=== PATIENT | male | born 1985 | race Caucasian/White ===

== ENCOUNTER 2022-02-16 06:24 | Emergency (ER) | payer MEDICAID ==
[~2022-02-16] VITALS: Ht 175.3 cm; Wt 85.0 kg
[2022-02-16 06:33] VITALS: BP 146/100
== END 2022-02-16 09:59 | disposition left against medical advice (07) ==
LOC: ER 06:25
DX: M54.9 Dorsalgia, unspecified (principal); Z53.21 Procedure and treatment not carried out due to patient leaving prior to being seen by health care provider

== ENCOUNTER 2022-02-23 22:00 | Emergency (ER) | payer MEDICAID ==
[~2022-02-23] VITALS: Ht 175.3 cm; Wt 81.8 kg
[2022-02-24] MEDS ORDERED: LIDOcaine 1% W/epiNEPHrine 1:100,000 20ml vial SQ ONE (02:30)
[2022-02-24] MEDS ORDERED: LIDOCAINE 2%/EPI 1:100,000 inj. Multi-dose 20 ML VIAL SQ ONE (02:40)
[2022-02-24] MEDS ORDERED: DOXYCYCLINE 100MG CAPSULE PO STA (04:06)
[2022-02-24] MEDS ORDERED: cephalexin 500mg capsule PO ONE (04:10)
[2022-02-24] MEDS ORDERED: CEPH-585 PO (04:24)
[2022-02-24] MEDS ORDERED: DOXY-11 PO (04:24)
[2022-02-24 05:09] VITALS: BP 133/79
== END 2022-02-24 05:12 | disposition home or self-care (01) ==
LOC: ER 22:02
DX: L02.512 Cutaneous abscess of left hand (principal); G89.29 Other chronic pain; Z72.89 Other problems related to lifestyle; Z79.899 Other long term (current) drug therapy
CPT/HCPCS: 10060; 99283

== ENCOUNTER 2022-05-05 23:01 | Emergency (ER) | payer MEDICAID ==
[~2022-05-05] VITALS: Ht 175.3 cm; Wt 86.4 kg
[2022-05-05 23:04] VITALS: BP 140/109
[2022-05-06] MEDS ORDERED: HYDROcodone/acetaminophen 5mg/325mg tablet PO ONE (03:05)
[2022-05-06] MEDS ORDERED: amox tr/potassium clavulanate 875/125mg TAB PO ONE (03:05)
[2022-05-06] MEDS ORDERED: AMOX-117 PO (03:10)
[2022-05-06] MEDS ORDERED: HYDR-3965 PO (03:10)
--- NOTE | 2022-05-06 03:37 | NUR ---
pt being very vocal to RN upon discharge. MD was made aware. MD aware of the patients' back issues. Pt arguing that "no one does anything for his back" [place] the city [place] and has refused to go to the [facility], according to him. And he has not set himself up with any PCP. He wants us to do it. Explanined this isn't happening and that he need to take care of his healthcare himself. Security actually got called to escort him out of the room and outside. He is very loud and irritated and irritable and mean to staff and it is uncalled for.
== END 2022-05-06 03:43 | disposition home or self-care (01) ==
LOC: ER 23:02
DX: R23.4 Changes in skin texture (principal); N64.59 Other signs and symptoms in breast; F17.200 Nicotine dependence, unspecified, uncomplicated; G89.29 Other chronic pain; M54.9 Dorsalgia, unspecified; Z79.899 Other long term (current) drug therapy; W26.0XXA Contact with knife, initial encounter; Y93.89 Activity, other specified; Y92.89 Other specified places as the place of occurrence of the external cause; Y99.8 Other external cause status
CPT/HCPCS: 99283; A6449

== ENCOUNTER 2022-05-18 07:25 | Emergency (ER) | payer MEDICAID ==
[~2022-05-18 07:25] MED LIST: HYDR-3965 PO
== END 2022-05-18 09:42 | disposition left against medical advice (07) ==
LOC: ER 07:25
DX: L02.91 Cutaneous abscess, unspecified (principal); Z53.21 Procedure and treatment not carried out due to patient leaving prior to being seen by health care provider

== ENCOUNTER 2022-05-21 21:21 | Inpatient (IN) | payer MEDICAID ==
[~2022-05-21] VITALS: Ht 172.7 cm; Wt 84.3 kg
[2022-05-21] MEDS ORDERED: piperacillin/tazo 4.5gm/100ml 100 ML IV STA (23:44)
[2022-05-21] MEDS ORDERED: acetaminophen 325mg tablet PO ONE (23:45)
[2022-05-21] MEDS ORDERED: ketorolac trometh. 30mg/ml inj. IV ONE (23:45)
[2022-05-21] MEDS ORDERED: VANCOMYCIN 1,500MG in normal saline IV soln 300 ML IV ONE (23:50)
[2022-05-22 00:53] LABS: BASOPHILS % (AUTO) 0.3 % (0-1); EOSINOPHILS % (AUTO) 0.4 % (0-6); HEMATOCRIT 37.3 % (42.0-52.0); HEMOGLOBIN 12.6 g/dl (14.0-17.9); LYMPHOCYTES # (AUTO) 1.2 X10'3 (1.1-4.8); LYMPHOCYTES % (AUTO) 11.1 % (21-51); MEAN CORPUSCULAR HEMOGLOBIN 30.3 PG (27.0-31.0); MEAN CORPUSCULAR HGB CONC 33.7 g/dL (33.0-36.5); MEAN PLATELET VOLUME 7.3 FL (7.4-10.4); MONOCYTES # (AUTO) 0.6 X10'3 (0-0.9); MONOCYTES % (AUTO) 5.5 % (2-12); NEUTROPHILS # (AUTO) 9.2 X10'3 (1.8-7.7); NEUTROPHILS % (AUTO) 82.7 % (42-75); PLATELET COUNT 319 X10'3 (140-440); RED BLOOD COUNT 4.15 X10'6 (4.70-6.10); RED CELL DISTRIBUTION WIDTH 12.5 % (11.5-14.5); WHITE BLOOD COUNT 11.1 X10'3 (4.5-11.0)
[2022-05-22 01:34] LABS: ALANINE AMINOTRANSFERASE 15 U/L (12-78); ALBUMIN/GLOBULIN RATIO 0.8 (1.1-1.5); ALKALINE PHOSPHATASE 114 IU/L (46-116); ANION GAP 9 (8-16); ASPARTATE AMINO TRANSFERASE 13 U/L (10-37); BILIRUBIN,TOTAL 0.2 MG/DL (0.1-1.0); BLOOD UREA NITROGEN 23 MG/DL (7-18); BUN/CREATININE RATIO 24.7 (10.0-20.0); C-REACTIVE PROTEIN 6.47 MG/DL (0.0-0.5); CALCIUM 8.4 MG/DL (8.5-10.1); CHLORIDE 99 MMOL/L (99-107); CREATININE 0.93 MG/DL (0.60-1.10); ETHANOL < 0.010 GM/DL (0.0-0.010); GLUCOSE 225 MG/DL (70-104); SODIUM 133 MMOL/L (135-145); TOTAL CARBON DIOXIDE 25.2 MMOL/L (24-32); TOTAL PROTEIN 6.8 G/DL (6.4-8.2); eGFR > 90 ML/MIN
[2022-05-22] MEDS ORDERED: normal saline 1000ml 1,000 ML IV ONE (02:35)
[2022-05-22] MEDS ORDERED: magnesium hydroxide 30ml (MOM) UD suspension PO PRN (03:45)
[2022-05-22] MEDS ORDERED: potassium Cl 20 mEq SR tablet PO PRN ×2 (03:45)
[2022-05-22] MEDS ORDERED: ondansetron/PF 4mg/2ml inj IV PRN (03:45)
[2022-05-22] MEDS: normal saline 1000ml 1,000 ML IV SCH ×3 (03:45→15:01)
[2022-05-22] MEDS ORDERED: potassium Cl 40MEQ/1/2NS 520ml 520 ML IV PRN (03:45)
[2022-05-22] MEDS ORDERED: mag hydrox/Alum hydrox/simeth 30ml oral suspension PO PRN (03:45)
[2022-05-22] MEDS ORDERED: acetaminophen 325mg tablet PO PRN ×2 (03:45)
[2022-05-22] MEDS ORDERED: magnesium 4gm in 100ml NS 100 ML IV PRN (03:45)
[2022-05-22] MEDS ORDERED: HYDROcodone/acetaminophen 5mg/325mg tablet PO PRN (03:45)
--- NOTE | 2022-05-22 07:12 | NUR ---
Report called to LEONORA Mace on surgical floor.
[2022-05-22 07:47] VITALS: BP 138/80
[2022-05-22] MEDS: docusate sod 100mg capsule PO SCH ×2 (08:00→20:00)
[2022-05-22] MEDS: K and/or MAG REPLACEMENT MC SCH ×2 (08:00→19:48)
[2022-05-22] MEDS ORDERED: piperacillin/tazo 4.5gm/100ml 100 ML IV SCH (08:00)
--- NOTE | 2022-05-22 10:07 | NUR ---
pt. refused to roll over for skin check
[2022-05-22 12:15] VITALS: BP 127/75
--- NOTE | 2022-05-22 12:23 | NUR ---
Initial: Pt admit for sepsis secondary to multiple skin abscesses. Wound care has been consulted, pending assessment at this time. Pt on a regular diet and eating well, documented with 100% PO intake of first meal. No documented BM since admit. Pt with routine bowel care available however pt refused this morning per EMR. Will continue to follow and make recommendations as appropriate pending wound care assessment and trends in PO intake. Recommendations: 1) Continue regular diet; monitor need for CHO controlled diet and consider obtaining an A1c given reported h/o prediabetes with BG 225 mg/dL on admit 2) Monitor need for ONS/additional protein 3) Routine bowel care 4) Scaled weight this admit; subsequent weekly scaled weights Addendum: 05/22/22 at [address] Amended: Links added.
[2022-05-22] MEDS: VANCOmycin 1250MG/NS 250ml Bag 250 ML IV SCH (13:15)
[2022-05-22] MEDS: HYDROcodone/acetaminophen 10/325mg tab PO PRN ×2 (14:53→21:14)
--- NOTE | 2022-05-22 15:05 | NUR ---
put optifoam over left elbow per DM
--- NOTE | 2022-05-22 18:43 | NUR ---
Problems reprioritized. Patient report given, questions answered & plan of care reviewed with NERY RN.
[2022-05-22 19:38] VITALS: BP 127/81
[2022-05-22] MEDS: enoxaparin 40mg/0.4ml syringe SQ SCH (20:00)
[2022-05-22 20:47] LABS: CLARITY,URINE CLEAR (Clear); COLOR,URINE YELLOW (Yellow); GLUCOSE, URINE 500 mg/dl (Neg); KETONES,URINE NEGATIVE (Neg); LEUKOCYTE ESTERASE ,URINE NEGATIVE (Neg); NITRITES, URINE NEGATIVE (Neg); OCCULT BLOOD,URINE NEGATIVE (Neg); PROTEIN,URINE NEGATIVE (Neg); UROBILINOGEN,URINE 0.2 E.U/dL (0.2-1.0)
[2022-05-22 20:51] LABS: UA COLLECTION TYPE NON-SPECIFIED
[2022-05-22 20:56] LABS: URINE AMPHETAMINE SCREEN POSITIVE (Neg); URINE BARBITUATE SCREEN NEGATIVE (Neg); URINE BENZODIAZEPINES SCREEN NEGATIVE (Neg); URINE CANNABINOID SCREEN NEGATIVE (Neg); URINE COCAINE SCREEN NEGATIVE (Neg); URINE METHADONE SCREEN NEGATIVE (Neg); URINE OPIATE SCREEN NEGATIVE (Neg); URINE PHENCYCLIDINE SCREEN NEGATIVE (Neg)
[2022-05-22 22:52] VITALS: BP 120/75
--- NOTE | 2022-05-23 | NUR ---
Pt. is drowsy but arousable. C/o pain in left elbow states arm as less swollen and less red than yesterday. Mepilex dressing intact small amt of yellow drainage noted. Pt. able to take po fluids and meds and is cooperative. Peripheral IV infusing NS @100 ml/hr. voids per urinal large amt trisha clear urine. Plan continue with antibiotic therapy.
[2022-05-23] MEDS: VANCOmycin 1250MG/NS 250ml Bag 250 ML IV SCH ×3 (03:17→21:24)
[2022-05-23 07:57] VITALS: BP 149/86
[2022-05-23] MEDS: K and/or MAG REPLACEMENT MC SCH ×2 (08:00→18:35)
[2022-05-23] MEDS: docusate sod 100mg capsule PO SCH ×3 (08:00→18:55)
[2022-05-23 09:41] LABS: BASOPHILS # (AUTO) 0.1 X10'3 (0-0.2); BASOPHILS % (AUTO) 0.8 % (0-1); EOSINOPHILS # (AUTO) 0.1 X10'3 (0-0.9); EOSINOPHILS % (AUTO) 1.1 % (0-6); HEMOGLOBIN 11.7 g/dl (14.0-17.9); LYMPHOCYTES # (AUTO) 1.3 X10'3 (1.1-4.8); LYMPHOCYTES % (AUTO) 17.3 % (21-51); MEAN CORPUSCULAR HEMOGLOBIN 30.2 PG (27.0-31.0); MEAN CORPUSCULAR HGB CONC 33.5 g/dL (33.0-36.5); MEAN CORPUSCULAR VOLUME 90.2 FL (78-98); MEAN PLATELET VOLUME 7.2 FL (7.4-10.4); MONOCYTES # (AUTO) 0.4 X10'3 (0-0.9); MONOCYTES % (AUTO) 5.2 % (2-12); NEUTROPHILS # (AUTO) 5.5 X10'3 (1.8-7.7); NEUTROPHILS % (AUTO) 75.6 % (42-75); PLATELET COUNT 266 X10'3 (140-440); RED BLOOD COUNT 3.88 X10'6 (4.70-6.10); RED CELL DISTRIBUTION WIDTH 12.5 % (11.5-14.5); WHITE BLOOD COUNT 7.3 X10'3 (4.5-11.0)
[2022-05-23] MEDS: normal saline 1000ml 1,000 ML IV SCH ×2 (09:45→16:52)
[2022-05-23 09:49] LABS: ALANINE AMINOTRANSFERASE 11 U/L (12-78); ALBUMIN 2.3 G/DL (3.4-5.0); ALBUMIN/GLOBULIN RATIO 0.6 (1.1-1.5); ALKALINE PHOSPHATASE 79 IU/L (46-116); ANION GAP 6 (8-16); ASPARTATE AMINO TRANSFERASE 9 U/L (10-37); BILIRUBIN,TOTAL 0.2 MG/DL (0.1-1.0); BLOOD UREA NITROGEN 12 MG/DL (7-18); BUN/CREATININE RATIO 17.1 (10.0-20.0); CALCIUM 7.8 MG/DL (8.5-10.1); CHLORIDE 105 MMOL/L (99-107); GLUCOSE 195 MG/DL (70-104); POTASSIUM 4.1 MMOL/L (3.5-5.1); SODIUM 137 MMOL/L (135-145); TOTAL CARBON DIOXIDE 26.2 MMOL/L (24-32); eGFR > 90 ML/MIN
[2022-05-23] MEDS: HYDROcodone/acetaminophen 10/325mg tab PO PRN (11:04)
[2022-05-23] MEDS ORDERED: VANCOMYCIN LEVEL IV ONE (12:30)
[2022-05-23 18:00] VITALS: BP 150/74
--- NOTE | 2022-05-23 18:23 | NUR ---
Problems reprioritized. Patient report given, questions answered & plan of care reviewed with SANTI LEA.
[2022-05-23] MEDS: enoxaparin 40mg/0.4ml syringe SQ SCH (18:55)
[2022-05-23 22:00] VITALS: BP 140/80
[2022-05-24] MEDS: HYDROcodone/acetaminophen 10/325mg tab PO PRN ×4 (01:02→14:45)
[2022-05-24] MEDS: normal saline 1000ml 1,000 ML IV SCH ×2 (03:13→14:48)
[2022-05-24] MEDS: VANCOmycin 1250MG/NS 250ml Bag 250 ML IV SCH (05:10)
--- NOTE | 2022-05-24 06:20 | NUR ---
Patient in room [facility]. I have received report from SANTI LEA and had the opportunity to ask questions and assume patient care.
[2022-05-24 07:20] LABS: ALANINE AMINOTRANSFERASE 12 U/L (12-78); ALBUMIN 2.4 G/DL (3.4-5.0); ALBUMIN/GLOBULIN RATIO 0.6 (1.1-1.5); ALKALINE PHOSPHATASE 91 IU/L (46-116); ANION GAP 5 (8-16); ASPARTATE AMINO TRANSFERASE 12 U/L (10-37); BASOPHILS # (AUTO) 0.1 X10'3 (0-0.2); BASOPHILS % (AUTO) 0.7 % (0-1); BILIRUBIN,TOTAL 0.2 MG/DL (0.1-1.0); BLOOD UREA NITROGEN 18 MG/DL (7-18); BUN/CREATININE RATIO 23.7 (10.0-20.0); CALCIUM 8.5 MG/DL (8.5-10.1); CHLORIDE 104 MMOL/L (99-107); CREATININE 0.76 MG/DL (0.60-1.10); EOSINOPHILS # (AUTO) 0.1 X10'3 (0-0.9); EOSINOPHILS % (AUTO) 2.1 % (0-6); GLUCOSE 216 MG/DL (70-104); HEMATOCRIT 36.8 % (42.0-52.0); HEMOGLOBIN 12.3 g/dl (14.0-17.9); LYMPHOCYTES # (AUTO) 1.4 X10'3 (1.1-4.8); LYMPHOCYTES % (AUTO) 20.2 % (21-51); MAGNESIUM 2.1 MG/DL (1.5-2.4); MEAN CORPUSCULAR HEMOGLOBIN 30.2 PG (27.0-31.0); MEAN CORPUSCULAR HGB CONC 33.5 g/dL (33.0-36.5); MEAN CORPUSCULAR VOLUME 90.3 FL (78-98); MEAN PLATELET VOLUME 7.4 FL (7.4-10.4); MONOCYTES # (AUTO) 0.5 X10'3 (0-0.9); MONOCYTES % (AUTO) 7.7 % (2-12); NEUTROPHILS # (AUTO) 4.8 X10'3 (1.8-7.7); NEUTROPHILS % (AUTO) 69.3 % (42-75); PLATELET COUNT 282 X10'3 (140-440); POTASSIUM 4.6 MMOL/L (3.5-5.1); RED BLOOD COUNT 4.08 X10'6 (4.70-6.10); RED CELL DISTRIBUTION WIDTH 12.1 % (11.5-14.5); SODIUM 136 MMOL/L (135-145); TOTAL CARBON DIOXIDE 27.3 MMOL/L (24-32); TOTAL PROTEIN 6.4 G/DL (6.4-8.2); WHITE BLOOD COUNT 6.9 X10'3 (4.5-11.0); eGFR > 90 ML/MIN
[2022-05-24 07:27] VITALS: BP 144/81
[2022-05-24] MEDS: K and/or MAG REPLACEMENT MC SCH ×2 (08:00→20:00)
[2022-05-24] MEDS: docusate sod 100mg capsule PO SCH ×2 (08:00→20:00)
[2022-05-24 12:22] VITALS: BP 143/80
[2022-05-24] MEDS ORDERED: VANCOMYCIN LEVEL IV ONE (13:30)
--- NOTE | 2022-05-24 13:54 | NUR ---
WOUND INFECTION EDUCATION PROVIDED BY WOUND CARE 1. Patient instructed to call their primary doctor, or go the ED immediately if any of the following symptoms occur: * Increased pain in wound * Increase in drainage from the wound * Redness in the skin surrounding the wound * Warmth in the skin surrounding the wound * Bleeding from the wound * Temperature of 101 or greater 2. If any of these occur while in the hospital tell a nurse immediately. Addendum: 05/24/22 at 1354 by Mary Ritter LVN Amended: Links added.
[2022-05-24] MEDS: VANCOMYCIN 1,500MG in normal saline IV soln 300 ML IV SCH ×2 (15:33→22:53)
--- NOTE | 2022-05-24 17:38 | NUR ---
Student documentation: I have reviewed interventions, assessments performed and documented by Aguila PARKS.
--- NOTE | 2022-05-24 18:42 | NUR ---
Problems reprioritized. Patient report given, questions answered & plan of care reviewed with Abbey LEA.
[2022-05-24 19:00] VITALS: BP 137/83
[2022-05-24] MEDS: enoxaparin 40mg/0.4ml syringe SQ SCH (20:00)
--- NOTE | 2022-05-24 23:02 | NUR ---
pt refused 2300 vitals
[2022-05-25] MEDS: normal saline 1000ml 1,000 ML IV SCH (01:45)
--- NOTE | 2022-05-25 06:24 | NUR ---
Problems reprioritized. Patient report given to Samantha RAZO, questions answered & plan of care reviewed with .
--- NOTE | 2022-05-25 06:29 | NUR ---
Problems reprioritized. Patient report given, questions answered & plan of care reviewed with DANNI MAST.
--- NOTE | 2022-05-25 06:30 | NUR ---
Patient in room [facility]. I have received report from Abbey LEA and had the opportunity to ask questions and assume patient care.
[2022-05-25] MEDS: VANCOMYCIN 1,500MG in normal saline IV soln 300 ML IV SCH (07:46)
[2022-05-25 07:48] LABS: ALANINE AMINOTRANSFERASE 12 U/L (12-78); ALBUMIN 2.7 G/DL (3.4-5.0); ALBUMIN/GLOBULIN RATIO 0.7 (1.1-1.5); ALKALINE PHOSPHATASE 85 IU/L (46-116); ANION GAP 7 (8-16); ASPARTATE AMINO TRANSFERASE 15 U/L (10-37); BILIRUBIN,TOTAL 0.2 MG/DL (0.1-1.0); BLOOD UREA NITROGEN 21 MG/DL (7-18); CALCIUM 8.5 MG/DL (8.5-10.1); CHLORIDE 102 MMOL/L (99-107); CREATININE 0.84 MG/DL (0.60-1.10); GLUCOSE 200 MG/DL (70-104); MAGNESIUM 2.1 MG/DL (1.5-2.4); POTASSIUM 4.5 MMOL/L (3.5-5.1); SODIUM 136 MMOL/L (135-145); TOTAL CARBON DIOXIDE 26.8 MMOL/L (24-32); TOTAL PROTEIN 6.7 G/DL (6.4-8.2); eGFR > 90 ML/MIN
[2022-05-25 07:51] LABS: BASOPHILS % (AUTO) 0.6 % (0-1); EOSINOPHILS # (AUTO) 0.2 X10'3 (0-0.9); EOSINOPHILS % (AUTO) 2.3 % (0-6); HEMATOCRIT 38.7 % (42.0-52.0); HEMOGLOBIN 12.8 g/dl (14.0-17.9); LYMPHOCYTES # (AUTO) 1.2 X10'3 (1.1-4.8); LYMPHOCYTES % (AUTO) 18.3 % (21-51); MEAN CORPUSCULAR HEMOGLOBIN 29.8 PG (27.0-31.0); MEAN CORPUSCULAR HGB CONC 33.2 g/dL (33.0-36.5); MEAN CORPUSCULAR VOLUME 89.9 FL (78-98); MEAN PLATELET VOLUME 7.3 FL (7.4-10.4); MONOCYTES # (AUTO) 0.4 X10'3 (0-0.9); MONOCYTES % (AUTO) 6.4 % (2-12); NEUTROPHILS # (AUTO) 4.9 X10'3 (1.8-7.7); NEUTROPHILS % (AUTO) 72.4 % (42-75); PLATELET COUNT 320 X10'3 (140-440); RED CELL DISTRIBUTION WIDTH 12.3 % (11.5-14.5); WHITE BLOOD COUNT 6.8 X10'3 (4.5-11.0)
[2022-05-25] MEDS: K and/or MAG REPLACEMENT MC SCH (08:00)
[2022-05-25] MEDS: docusate sod 100mg capsule PO SCH (08:00)
--- NOTE | 2022-05-25 09:41 | NUR ---
Reassessment: Pt seen by wound care, per note pt with an abscess to left elbow. Pt continues on a regular diet, now getting double eggs WB and double entree BIDLD. Pt eating well, documented with 100% PO intake of all meals with the exception of 75% of milk only at dinner 05/24. Pending documentation of PO intake for today. LBM 05/23, pt continues refusing routine bowel care per EMR. No nutrition intervention implemented at this time. Will continue to follow. Recommendations: 1) Continue regular diet; monitor need for CHO controlled diet and consider obtaining an A1c given reported h/o prediabetes with BG 225 mg/dL on admit 2) Double eggs WB, double entree BIDLD 3) Routine bowel care 4) Scaled weight this admit; subsequent weekly scaled weights Addendum: 05/25/22 at [address] Amended: Links added.
--- NOTE | 2022-05-25 09:45 | NUR ---
Patient had new IV placed 20 G in JYOTHI. received IV Vancomycin. Patient tolerated well.
[2022-05-25 11:00] VITALS: BP 145/91
[2022-05-25] MEDS ORDERED: ACET-1008 PO (13:39)
[2022-05-25] MEDS ORDERED: OMEP20CA15 PO (13:39)
[2022-05-25] MEDS ORDERED: DOXY-243 PO (13:39)
[2022-05-25] MEDS ORDERED: VANCOMYCIN LEVEL IV ONE (14:30)
--- NOTE | 2022-05-25 14:30 | NUR ---
I have reviewed and agree with interventions, assessments, and documentation by Samantha Curran LVN.
--- NOTE | 2022-05-25 15:00 | NUR ---
Patient DC to the streets. Left facility with educations on taking medications properly and importance of antibiotics. Patient denied any pain at this time. VS afebrile. Skin visibly red sores all over. Patient showered twice while here at hospital and still has foul odor all over body. IV removed from J[facility]. All belongings left with patient all DC paper work signed and all medications sent to patients prefered pharmacy on [facility].
== END 2022-05-25 15:00 | disposition home or self-care (01) | DRG 720 ==
LOC: ER 21:21 → EEVIPCON 05-22 03:48 → ED HOLD 05-22 03:48 → EDBEDREQ 05-22 05:12 → SUR 3N 05-22 07:30
PROVIDERS: ADMIT Family Medicine; ATTEND Internal Medicine
DX: A41.9 Sepsis, unspecified organism (principal); F15.90 Other stimulant use, unspecified, uncomplicated; F17.210 Nicotine dependence, cigarettes, uncomplicated; L03.114 Cellulitis of left upper limb; L02.512 Cutaneous abscess of left hand; F20.9 Schizophrenia, unspecified; G89.29 Other chronic pain; M54.9 Dorsalgia, unspecified; Z79.899 Other long term (current) drug therapy; Z71.6 Tobacco abuse counseling; Z71.51 Drug abuse counseling and surveillance of drug abuser
CPT/HCPCS: 36415; 73200; 80053; 80202; 80305; 80320; 81003; 83605; 83735; 84145; 85025; 85651; 86140; 87040; 87081; 93971; 96365; 96368; 96375; 97161; 97530; 99285; A6154; A6212; A6222; A6223; A6258; A6449; G0378; J2543; J3370; J7030; J7040

== ENCOUNTER 2022-06-10 14:46 | Emergency (ER) | payer MEDICAID ==
[~2022-06-10 14:46] MED LIST changes: +CEPH-585 PO; +DOXY-243 PO; +OMEP20CA15 PO; +SULF1TAB45 PO
[2022-06-11] MEDS ORDERED: HYDR-3972 PO ×2 (10:13→11:29)
== END 2022-06-10 15:33 | disposition left against medical advice (07) ==
LOC: ER 14:46
DX: Z76.0 Encounter for issue of repeat prescription (principal); Z53.21 Procedure and treatment not carried out due to patient leaving prior to being seen by health care provider

== ENCOUNTER 2022-06-11 09:38 | Emergency (ER) | payer MEDICAID ==
[~2022-06-11] VITALS: Ht 175.3 cm; Wt 84.1 kg
[2022-06-11 09:43] VITALS: BP 152/100
[2022-06-11] MEDS ORDERED: HYDR-3972 PO ×2 (10:13→11:29)
== END 2022-06-11 10:34 | disposition home or self-care (01) ==
LOC: ER 09:38
DX: M54.50 Low back pain, unspecified (principal); G89.29 Other chronic pain; Z72.89 Other problems related to lifestyle; Z79.899 Other long term (current) drug therapy
CPT/HCPCS: 99284